=== PATIENT | female | born 1975 | race Caucasian/White ===

== ENCOUNTER 2016-12-25 13:45 | Emergency (ER) | payer OTHER ==
[~2016-12-25] VITALS: Ht 182.9 cm; Wt 118.0 kg
[2016-12-25 13:53] VITALS: BP 118/58; PULSE 92; RESP 16; TEMP 98.1; O2SAT 96
[2016-12-25] MEDS ORDERED: KETOROLAC TROMETHAMINE 30 MG/ML (IVP) VIAL IV PUSH ONE (14:00)
[2016-12-25] MEDS ORDERED: ONDANSETRON HCL 4 MG/2 ML VIAL IVP ONE (14:00)
[2016-12-25] MEDS ORDERED: SODIUM CHLOR 0.9% 1000 ML INJ 1,000 ML IV ONE (14:00)
--- NOTE | 2016-12-25 14:15 | PD ---
HPI Chief Complaint: Abdominal Pain Time Seen by Provider: 13:49 Travel History International Travel<30 days: No Contact w/Intl Traveler<30days: No Traveled to known affect area: No History of Present Illness HPI The patient is a 41-year-old female who presents to the emergency department as an interfacility transfer from [place]. The patient has had left lower quadrant abdominal pain over the last 3 days. The patient's pain is always there, however, is wavelike, crampy, located in left lower quadrant. The patient states she was initially seen in an urgent care and had a urine that was negative. The patient was referred to [facility] emergency department for further evaluation. The patient has CT of the abdomen and pelvis to evaluate for diverticulitis that was negative for diverticulitis, however, revealed mild congestion of the left ovary and mild free fluid in the pelvis. Therefore, the patient was transferred to [facility] for ultrasound to evaluate for possible ovarian torsion. The patient denies any nausea, vomiting, dysuria, or vaginal bleeding. The patient doesn't previous history of partial hysterectomy. Symptoms are moderate, no alleviating or exacerbating factors. PFSH Past Medical History ?: Not Past Surgical History Cholecystectomy: Yes Gynecologic Surgery: Yes Hysterectomy: Yes Social History Alcohol Use: No Tobacco Use: No Substance Use: No Allergies-Medications (Allergen,Severity, Reaction): Coded Allergies: Morphine (Verified Allergy, Severe, HALLUCINATIONS, 12/25/16) Reported Meds & Prescriptions Reported Meds & Active Scripts Active No Active Prescriptions or Reported Medications Review of Systems Except as stated in HPI: all other systems reviewed are Neg General / Constitutional: No: Fever Cardiovascular: No: Chest Pain or Discomfort Respiratory: No: Shortness of Breath Gastrointestinal: Positive: Abdominal Pain, No: Nausea, Vomiting Genitourinary: Positive: Pelvic Pain, No: Dysuria, Discharge, Vaginal Bleeding Musculoskeletal: No: Myalgias Skin: No Rash Physical Exam Narrative GENERAL: Awake, alert, pleasant 41 year-old female who appears her stated age and is in no acute respiratory distress. SKIN: Focused skin assessment warm/dry. HEAD: Atraumatic. Normocephalic. EYES: Pupils equal and round. No scleral icterus. No injection or drainage. ENT: No nasal bleeding or discharge. Mucous membranes pink and moist. NECK: Trachea midline. No JVD. CARDIOVASCULAR: Regular rate and rhythm. No murmur appreciated. RESPIRATORY: No accessory muscle use. Clear to auscultation. Breath sounds equal bilaterally. GASTROINTESTINAL: Abdomen soft, tender palpation suprapubic and left lower quadrant. No rebound tenderness. Back: No CVA tenderness. MUSCULOSKELETAL: No obvious deformities. No clubbing. No cyanosis. No edema. NEUROLOGICAL: Awake and alert. No obvious cranial nerve deficits. Motor grossly within normal limits. Normal speech. PSYCHIATRIC: Appropriate mood and affect; insight and judgment normal. Data Data Last Documented VS Vital Signs Date Time Temp Pulse Resp B/P Pulse Ox O2 Delivery O2 Flow Rate FiO2 12/25/16 15:47 90 14 107/55 97 12/25/16 13:53 98.1 Orders Ondansetron Inj (Zofran Inj) (12/25/16 14:00) Ketorolac Inj (Toradol Inj) (12/25/16 14:00) Sodium Chlor 0.9% 1000 Ml Inj (Ns 1000 M (12/25/16 14:00) Urinalysis - C+S If Indicated (12/25/16 13:58) Us Pelvis Comp Torch Operator/Non-Preg (12/25/16 13:49) MDM Medical Decision Making Medical Screen Exam Complete: Yes Emergency Medical Condition: Yes Medical Record Reviewed: Yes Interpretation(s) Last Impressions Pelvis Ultrasound 12/25/16 1349 Signed Impressions: Service Date/Time: Wednesday, December 25, 2016 14:20 - CONCLUSION: Nonvisualization of both ovaries Trace fluid in the pelvis. Leroy King MD FACR Differential Diagnosis Differential diagnosis includes ovarian torsion, ovarian cyst, diverticulitis, pyelonephritis, UTI, uterine fibroid. Narrative Course IV was established, I reviewed the labs from the patient's [place] visit, white count was mildly elevated, otherwise unremarkable. UA was ordered. I reviewed the CT of the abdomen and pelvis report that was performed earlier this morning , ultrasound was performed to evaluate the left ovary and for ovarian torsion. The patient was administered Toradol 30 mg intravenously and IV fluids. Ultrasound reveals no ovaries, trace fluid in the pelvis. The patient believes that he did a partial hysterectomy and left her ovaries, however, ovaries are not visualized on exam. The patient was reevaluated, her pain was 1/10. The patient will be discharged home on ibuprofen and Nada, is advised to follow-up with her primary physician and obtain her surgical records. She is advised his symptoms persist she may need diagnostic laparoscopy by her social work therapist and/or general surgery. The patient agrees and understands. She will be provided a copy of her CT results, ultrasound results, and lab results at discharge. Diagnosis Primary Impression: Abdominal pain Qualified Code: R10.32 - Left lower quadrant pain Patient Instructions: General Instructions Additional Instructions: Medications as directed. Follow-up with your primary physician. Please provide the patient a copy of her lab results, CT results, and ultrasound results at discharge. If symptoms persist you may need diagnostic laparoscopy with your gynecologic and/or general surgeon. Med/Other Pt SpecificInfo: Prescription(s) given Scripts Ibuprofen 600 Mg [id number] Mg PO Q6H PRN (Pain/Inflammation) #20 TAB Ref 0 Prov:Damion Portillo MD 12/25/16 Hydrocodone-Acetaminophen (Nada)5-325 mg Tab1 Tab PO Q6H PRN (PAIN) #15 TAB Ref 0 Prov:Damion Portillo MD 12/25/16 Disposition: 01 DISCHARGE HOME Condition: Stable Damion Portillo MD Dec 25, 2016 14:15
[2016-12-25 15:47] VITALS: BP 107/55; PULSE 90; RESP 14; O2SAT 97
--- NOTE | 2016-12-25 15:53 | RADRPT ---
EXAM DATE/TIME: 12/25/2016 14:20 [facility] COMPARISON: No previous studies available for comparison. INDICATIONS : Pelvic pain. MEDICAL HISTORY : Pelvic pain. Ovarian cysts. Anxiety. SURGICAL HISTORY : Hysterectomy. Cholecystectomy. D&C. Right total hip arthroplasty. ENCOUNTER: Initial ACUITY: 2 days PAIN SCORE: 3/10 LOCATION: Bilateral pelvis MEASUREMENTS: UTERUS: Surgically absent RIGHT OVARY: Nonvisualized LEFT OVARY: Nonvisualized FINDINGS: Examination limited by patient's body habitus. The patient is status post ERICKA and possible BSO. The re is trace free fluid in the left pelvis CONCLUSION: Nonvisualization of both ovaries Trace fluid in the pelvis. Leroy King MD FACR on December 25, 2016 at 15:49 Board Certified Radiologist. This report was verified electronically.
[2016-12-25] MEDS ORDERED: IBUP-232 PO (16:40)
[2016-12-25] MEDS ORDERED: NORC5TAB PO (16:40)
== END 2016-12-25 17:24 | disposition home or self-care (01) ==
LOC: NEPC 13:45
DX: R10.32 Left lower quadrant pain (principal)
CPT/HCPCS: 74177; 76856; 80048; 85007; 85027; 96360; 96361; 96374; 96375; 99284; J1885; J2405; J7030; Q9963; Q9967